=== PATIENT | male | born 1980 | race African-American/Black ===

== ENCOUNTER 2016-10-17 16:10 | Emergency (ER) | payer OTHER ==
[~2016-10-17] VITALS: Ht 180.3 cm; Wt 70.3 kg
[2016-10-17 16:15] VITALS: BP 115/75
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
[2016-10-17] MEDS ORDERED: MOBIC15 M1 PO (17:36)
[2016-10-17] MEDS ORDERED: CYCLOBENZAPRINE10 M1 PO (17:36)
== END 2016-10-17 17:54 ==
LOC: ERH 16:10
DX: S16.1XXA Strain of muscle, fascia and tendon at neck level, initial encounter (principal); V89.2XXA Person injured in unspecified motor-vehicle accident, traffic, initial encounter; Y93.9 Activity, unspecified; Y92.488 Other paved roadways as the place of occurrence of the external cause